=== PATIENT | female | born 1990 | race Caucasian/White ===

== ENCOUNTER 2017-09-24 19:02 | Emergency (ER) | payer MEDICAID ==
--- NOTE | 2017-09-24 19:48 | XRAY Report ---
Procedure Date: 09/24/2017 Accession Number: [id number] / [id number] Procedure: XR - Shoulder 3 View RT CPT Code: FULL RESULT: EXAM: RIGHT SHOULDER RADIOGRAPHY EXAM DATE: 09/24/2017 07:35 PM. CLINICAL HISTORY: 3 weeks of right shoulder pain after GLF. COMPARISON: None. TECHNIQUE: 3 views. FINDINGS: Bones: Acute oblique fracture of the surgical neck of the right humerus with mild posterior angulation. Clavicle, scapula, and visualized upper ribs appear intact. Joints: Slight inferior subluxation of the humeral head in the glenoid fossa which may reflect hemarthrosis. Acromioclavicular joint is unremarkable. Soft tissues: The visualized hemithorax is unremarkable. No soft tissue swelling. IMPRESSION: Mildly angulated oblique fracture through the surgical neck of the right humerus. RADIA
--- NOTE | 2017-09-24 20:58 | ED Physician Documentation ---
PD HPI UPPER EXT INJURY - Stated complaint Stated Complaint: R SHOULDER INJ - Chief complaint Chief Complaint: Ext Problem - History obtained from History obtained from: Patient - History of Present Illness Location: Right, Shoulder Type of injury: Fall Where injury occurred: Home Timing - onset: How many weeks ago (3) Timing - details: Abrupt onset Worsened by: Moving, Palpating Contributing factors: No: Anticoagulated Similar symptoms before: Has not had sx before Recently seen: Not recently seen - Additonal information Additional information: Patient is a 26 year old female with no significant past medical history who is presenting to the emergency department for arm pain. patient states that she fell down some steps three weeks ago and the pain has not gotten better. patient saw some deformity so she thought that it might be dislocated. Review of Systems Ten Systems: 10 systems reviewed and negative Musculoskeletal: reports: Extremity pain, Joint pain, Extremity swelling PD PAST MEDICAL HISTORY - Past Medical History Past Medical History: Yes - Past Surgical History Past Surgical History: No - Allergies Allergies/Adverse Reactions: Allergies Allergy/AdvReac Type Severity Reaction Status Date / Time No Known Drug Allergies Allergy Verified 09/24/17 19:13 - Social History Does the pt smoke?: Yes Smoking Status: Current every day smoker Does the pt drink ETOH?: Yes Does the pt have substance abuse?: No - Immunizations Immunizations are current?: No Immunizations: Other immun current PD ED PE NORMAL - Vitals Vital signs reviewed: Yes - General General: Alert and oriented X 3 - HEENT HEENT: Atraumatic - Respiratory Respiratory: No respiratory distress - Abdomen Abdomen: Non distended - Derm Derm: Normal color, Warm and dry, No rash - Neuro Neuro: Alert and oriented X 3 PD ED PE EXPANDED - Cardiac Cardiac: Radial strong equal - Extremities Extremities: Right shoulder (tenderness and swelling of right shoulder with mild gross deformity. ) Results - Vitals Vitals: Vital Signs - 24 hr 09/24/17 19:10 Temperature 36.5 C Heart Rate 120 H Respiratory 18 Rate Blood Pressure 136/99 H O2 Saturation 96 Oxygen O2 Source Room air - Rads (name of study) right shoulder Radiology: Final report received (proximal radial fracture) PD MEDICAL DECISION MAKING - ED course Complexity details: reviewed old records, reviewed results, re-evaluated patient , considered differential, d/w patient ED course: Magy was seen and examined at bedside. imaging was ordered. when patient returned the results were reviewed and were consistent with proximal humerus fracture. you have been placed in a splint. you should call the doctor tomorrow to schedule a follow up appointment. you may return to the emergency department at any time for new, worsening or uncontrollable symptoms. - Sepsis Event Vital Signs: Vital Signs - 24 hr 09/24/17 19:10 Temperature 36.5 C Heart Rate 120 H Respiratory 18 Rate Blood Pressure 136/99 H O2 Saturation 96 Oxygen O2 Source Room air Departure - Departure Disposition: 01 Home, Self Care Clinical Impression: Humerus fracture Condition: Good Instructions: ED Fx Upper Ext Follow-Up: Cesar Rico MD [Provider Admit Priv/Credential] - Tomorrow Comments: Your symptoms today are being caused by a fracture of your upper arm. you have been placed in a splint. you will need to call the orthopedic doctor tomorrow to schedule a follow up appointment. you can take motrin or tylenol as needed for pain. You should ice your shoulder at least 4 times a day.
[2017-09-24 21:10] VITALS: BP 130/94
== END 2017-09-24 21:08 | disposition home or self-care (01) ==
LOC: ED 19:02
DX: S42.211A Unspecified displaced fracture of surgical neck of right humerus, initial encounter for closed fracture (principal); W10.9XXA Fall (on) (from) unspecified stairs and steps, initial encounter; Y92.009 Unspecified place in unspecified non-institutional (private) residence as the place of occurrence of the external cause; F17.200 Nicotine dependence, unspecified, uncomplicated
CPT/HCPCS: 29105; 99283